=== PATIENT | female | born 1950 | race Caucasian/White ===

== ENCOUNTER 2024-09-22 16:33 | Emergency (ER) | payer MEDICARE ==
[2024-09-22] MEDS ORDERED: Sodium Chloride 0.9% 10 ML Syringe FLUSH PRN (17:12)
[2024-09-22] MEDS: Aspirin 81 MG Tab.Chew PO ONE (17:15)
[2024-09-22 17:23] LABS: HEMOGLOBIN 11.6 g/dL (11.5-16.5); MEAN CORPUSCULAR HEMOGLOBIN 28.9 pg (27.0-32.0); MEAN CORPUSCULAR HGB CONC 32.2 g/dL (31.0-35.0); MEAN PLATELET VOLUME 10.2 fL (6.0-10.0); RED BLOOD CELL COUNT 4.02 M/uL (3.80-5.80); RED CELL DISTRIBUTION WIDTH 14.1 % (11.0-16.0)
[2024-09-22 17:50] LABS: ANION GAP 13.1 mmol/L (5.0-15.0); CALCIUM 9.1 mg/dL (8.5-10.1); CARBON DIOXIDE,CO2 25.1 mmol/L (21.0-32.0); CREATININE 1.07 mg/dL (0.55-1.02); EST CRCL DRUG DOSING (CG) 42.53 mL/min; PHOSPHORUS 3.3 mg/dL (2.5-4.9); POTASSIUM,K 4.2 mmol/L (3.5-5.1); TROPONIN I HIGH SENSITIVITY 9.4 pg/ml (<=60.4)
[2024-09-22 18:21] LABS: INFLUENZA A NAA NEGATIVE (NEGATIVE); INFLUENZA B NAA NEGATIVE (NEGATIVE); RESPIRATORY SYNCYTIAL VIR NAA NEGATIVE (NEGATIVE)
[2024-09-22 18:25] LABS: CORONAVIRUS COVID-19 NAA NEGATIVE (NEGATIVE)
[2024-09-22] MEDS: Furosemide 40 MG/4 ML VIAL IVPUSH ONE (19:00)
[2024-09-22] MEDS: Morphine 4 MG/ML VIAL IVPUSH ONE (19:03)
[2024-09-22] MEDS: Albuterol/Ipratropium 3.0-0.5 MG/3 ML Neb Soln NEB SCH (19:08)
[2024-09-22] MEDS ORDERED: Iopamidol 755 Mg/ML 100 ML Bottle IV SCH (21:15)
[2024-09-22] MEDS: Enoxaparin 150 MG/1 ML Syringe SUBCUT ONE (22:03)
[2024-09-22] MEDS ORDERED: Methadone 10 MG Tab PO SCH (22:15)
[2024-09-22] MEDS ORDERED: Methadone 10 MG Tab PO ONE (22:30)
[2024-09-22] MEDS: Sodium Chloride 0.9% 50 ML SDV FLUSH ONE (23:39)
[2024-09-23] MEDS: traZODone 100 MG Tab PO SCH (00:14)
[2024-09-23] MEDS: Pantoprazole 40 MG Tab.CR PO SCH (07:20)
[2024-09-23] MEDS: Aspirin 81 MG Tab.EC PO SCH (07:20)
[2024-09-23] MEDS: Diltiazem 180 MG Cap.CD PO SCH (07:20)
[2024-09-23] MEDS: Pramipexole 0.125 MG Tab PO SCH (07:21)
[2024-09-23] MEDS: Sotalol 80 MG Tab PO SCH (07:21)
[2024-09-23] MEDS: Levothyroxine 50 MCG Tab PO SCH (07:21)
[2024-09-23] MEDS: Metoprolol Succinate 50 MG Tab.ER PO SCH (07:21)
[2024-09-23] MEDS ORDERED: traZODone 100 MG Tab PO SCH (08:00)
[2024-09-23] MEDS ORDERED: VENLAFAXINE 75 MG PO SCH (08:00)
[2024-09-23 08:27] LABS: ANION GAP 10.8 mmol/L (5.0-15.0); BUN/CREATININE RATIO 13.3 (6-25); CALCIUM 8.7 mg/dL (8.5-10.1); CARBON DIOXIDE,CO2 27.1 mmol/L (21.0-32.0); CREATININE 0.98 mg/dL (0.55-1.02); EST CRCL DRUG DOSING (CG) 46.43 mL/min; POTASSIUM,K 3.9 mmol/L (3.5-5.1); TROPONIN I HIGH SENSITIVITY 8.7 pg/ml (<=60.4)
[2024-09-23] MEDS: Albuterol 0.083% 2.5 MG/3 ML Neb Soln NEB SCH (10:56)
[2024-09-23] MEDS: Furosemide 40 MG/4 ML VIAL IVPUSH ONE (10:57)
[2024-09-23] MEDS: Furosemide 40 MG Tab PO ONE (11:41)
== END 2024-09-23 13:06 | disposition home or self-care (01) ==
LOC: LB.ED 16:33 → LB.MS 22:15
PROVIDERS: ADMIT Surgery; ATTEND Surgery
DX: R06.02 Shortness of breath (principal); R09.89 Other specified symptoms and signs involving the circulatory and respiratory systems; R09.02 Hypoxemia
CPT/HCPCS: 0241U; 36415; 71045; 80048; 83605; 83735; 83880; 84100; 84484; 85027; 85379; 93005; 94640; 96372; 96374; 96375; 99222; 99239; 99285-25; A9270-GY; G0378; J1650; J1938; J2270